=== PATIENT | female | born 1955 ===

== ENCOUNTER 2022-08-26 05:25 | Day surgery (SDC) | payer OTHER ==
[~2022-08-26] VITALS: Ht 157.5 cm; Wt 65.8 kg
[~2022-08-26 05:25] MED LIST: LEXAP PO; SYNTHROID88 MCG PO; VYTORIN 10-201 EACH PO; XOP IH
[2022-08-26] MEDS ORDERED: IBU600 MG PO (08:19)
== END 2022-08-26 13:00 | disposition home or self-care (01) ==
LOC: CIR.AMB 05:25
PROVIDERS: ATTEND Obstetrics & Gynecology Gynecology
DX: R93.89 Abnormal findings on diagnostic imaging of other specified body structures (principal); Z20.822 Contact with and (suspected) exposure to COVID-19; Z88.1 Allergy status to other antibiotic agents; E13.22 Other specified diabetes mellitus with diabetic chronic kidney disease; E03.9 Hypothyroidism, unspecified

== ENCOUNTER 2025-07-04 09:00 | Day surgery (SDC) | payer OTHER ==
[2025-06-28 13:34] VITALS: BP 125/67
[~2025-07-04] VITALS: Ht 157.5 cm; Wt 69.4 kg
[~2025-07-04 09:00] MED LIST changes: +BUDESONIDE-FO10.2 GM IH; +IBU600 MG PO; +LEXAPRO20 MG PO; +POVIDONE-IODINE 118 ML BOTT TOP ONE; +PROAIR RESPICL90 MCG IH; +VYTORIN 10-401 EACH PO
== END 2025-07-04 12:05 | disposition home or self-care (01) ==
LOC: CIR.AMB 09:00
PROVIDERS: ATTEND Obstetrics & Gynecology Gynecology
DX: N85.00 Endometrial hyperplasia, unspecified (principal); Z88.8 Allergy status to other drugs, medicaments and biological substances